=== PATIENT | female | born 1955 | race Caucasian/White ===

== ENCOUNTER 2017-12-17 23:46 | Emergency (ER) | payer OTHER ==
[2017-12-17 23:59] VITALS: BMI 31.6
--- NOTE | 2017-12-18 00:31 | ED PDOC ---
Arrival/HPI - General Chief Complaint: Chest Pain Time Seen by Provider: 12/18/17 00:14 Historian: Patient, Family (Son), Highway Construction Inspector (Son) - Critical Care Critical Care Minutes: 30 minutes - History of Present Illness Narrative History of Present Illness (Text): 12/18/17 00:27 A 62 year old male, whose past medical history include hypertension and hysterectomy, presents to the emergency department with son who translated, complaining of 2 day duration chest pain that has radiated to both upper extremities, cough, and subjective fever. The patient's son that the patient is here from [place]. She took an 11 hour flight 1 month ago, and has not had any complaints until 2 days ago. The son states that the patient developed a cough today. She describes the chest pain as a stabbing sensation. She notes that she took medication for her pain. The patient denies chills, headache, dizziness, shortness of breath, dyspnea on exertion, abdominal pain, nausea, vomiting, diarrhea, back pain, neck pain, urinary/bowel changes, or any other complaint. PMD: None Time/Duration: Other (2 Days) Symptom Onset: Sudden Symptom Course: Unchanged Activities at Onset: Rest, Light Context: Home Past Medical History - Provider Review Nursing Documentation Reviewed: Yes - Cardiac Hx Hypertension: Yes - Pulmonary Hx Respiratory Disorders: No - Neurological Hx Neurological Disorder: No - HEENT Hx HEENT Disorder: No - Renal Hx Renal Disorder: No - Endocrine/Metabolic Hx Diabetes Mellitus Type 1: Yes - Hematological/Oncological Hx Blood Disorders: No - Integumentary Hx Dermatological Disorder: No - Musculoskeletal/Rheumatological Hx Musculoskeletal Disorders: No - Gastrointestinal Hx Gastrointestinal Disorders: No - Genitourinary/Gynecological Hx Genitourinary Disorders: No - Psychiatric Hx Psychophysiologic Disorder: No Hx Substance Use: No - Surgical History Hx Hysterectomy: Yes - Anesthesia Hx Anesthesia: Yes Hx Anesthesia Reactions: No Hx Malignant Hyperthermia: No Family/Social History - Physician Review Nursing Documentation Reviewed: Yes Family/Social History: No Known Family HX Smoking Status: Never Smoked Hx Alcohol Use: No Hx Substance Use: No Allergies/Home Meds Allergies/Adverse Reactions: Allergies No Known Allergies Allergy (Verified 12/18/17 00:05) Home Medications: Home Meds Medication Instructions Recorded Confirmed Unobtainable 12/18/17 12/18/17 Review of Systems - Physician Review All systems were reviewed & negative as marked: Yes - Review of Systems Constitutional: Fevers Respiratory: Cough. absent: SOB Cardiovascular: Chest Pain. absent: EL Gastrointestinal: absent: Abdominal Pain, Stool Changes, Diarrhea, Nausea, Vomiting Genitourinary Female: absent: Urine Output Changes Musculoskeletal: absent: Back Pain, Neck Pain Neurological: absent: Headache, Dizziness Physical Exam Vital Signs Temp Pulse Resp BP Pulse Ox 12/18/17 03:54 16 12/18/17 03:10 98.5 F 80 18 122/47 L 97 12/18/17 02:34 68 18 131/68 100 12/18/17 01:54 85 18 156/85 H 100 12/18/17 01:53 87 156/85 H 12/17/17 23:46 99.5 F 79 18 152/86 H 100 - Systems Exam Head: Present: Atraumatic, Normocephalic Pupils: Present: PERRL Extroacular Muscles: Present: EOMI Conjunctiva: Present: Normal Mouth: Present: Moist Mucous Membranes Neck: Present: Normal Range of Motion Respiratory/Chest: Present: Clear to Auscultation, Good Air Exchange. No: Respiratory Distress, Accessory Muscle Use, Tender to Palpation Cardiovascular: Present: Regular Rate and Rhythm, Normal S1, S2. No: Murmurs Abdomen: Present: Normal Bowel Sounds. No: Tenderness, Distention, Peritoneal Signs Back: Present: Normal Inspection Upper Extremity: Present: Normal Inspection. No: Cyanosis, Edema Lower Extremity: Present: Normal Inspection. No: Edema Neurological: Present: GCS=15, CN II-XII Intact, Speech Normal Skin: Present: Warm, Dry, Normal Color. No: Rashes Psychiatric: Present: Alert, Oriented x 3, Normal Insight, Normal Concentration Medical Decision Making ED Course and Treatment: 12/18/17 00:32 Impression: A 62 year old female presents to the emergency department with her son for a complaint of 2 day duration chest pain radiating to both upper extremities. Plan: -- EKG -- Chest X-ray -- Labs -- Blood Culture -- Reassess and disposition Progress Notes: EKG: Ordered, reviewed, and independently interpreted the EKG. Rate : 78 BPM Rhythm : NSR Interpretation : Non-specific ST- T wave abnormality. 12/18/17 01:34: Positive Troponin (1.67) . 12/18/17 01:42: Discussed Troponin levels with patient and informed the patient that she is having an NV. The patient stated that she does not do well with bad news and requested something to clam her nerves. Patient's son noted that the patient had recently received bad news from [place] this week and was curious if that could have caused the NV. 12/18/17 01:57: Case discussed with medical assisting program director and Dr. Acevedo. Will admit patient. - Critical Care Critical Care Minutes: 30 minutes - Lab Interpretations Lab Results: 12/18/17 00:30 12/18/17 00:30 Lab Results 12/18/17 01:25: pO2 43, VBG pH 7.52 H, VBG pCO2 30.0 L, VBG HCO3 24.5, VBG Total CO2 25.4, VBG O2 Sat (Calc) 89.0 H, VBG Base Excess 2.4 H, VBG Potassium 3.9, Glucose 143 H, Lactate 1.7, FiO2 21.0, Sodium 136.0, Chloride 103.0, Venous Blood Potassium 3.9 12/18/17 01:25: Influenza Typ A,B (EIA) Negative for flu a/b 12/18/17 00:30: Thyroxine (T4) 12.2 H, TSH 3rd Generation 1.87 12/18/17 00:30: Triglycerides 113, Cholesterol 172, LDL Cholesterol Direct 97, HDL Cholesterol 42 12/18/17 00:30: APTT 35.7 12/18/17 00:30: Sodium 138, Potassium 3.9, Chloride 100, Carbon Dioxide 24, Anion Gap 18, BUN 11, Creatinine 0.7, Est GFR ( Amer) > 60, Est GFR (Non- Af Amer) > 60, Random Glucose 168 H, Calcium 10.2, Total Bilirubin 1.1, AST 45 H , ALT 30, Alkaline Phosphatase 63, Lactate Dehydrogenase 509, Total Creatine Kinase 214, Troponin I 1.67 H*, NT-Pro-B Natriuret Pep 1290 H, Total Protein 8.5 H, Albumin 4.5, Globulin 4.0, Albumin/Globulin Ratio 1.1 12/18/17 00:30: PT 12.4, INR 1.09 H 12/18/17 00:30: WBC 12.5 H, RBC 4.72, Hgb 13.1, Hct 38.7, MCV 82.0, MCH 27.8, MCHC 33.9, RDW 13.4, Plt Count 370, MPV 10.4, Gran % 70.6 H, Lymph % (Auto) 21.4 L, [place] % (Auto) 7.5 H, Eos % (Auto) 0.3 L, Baso % (Auto) 0.2, Gran # 8.86 H, Lymph # (Auto) 2.7, [place] # (Auto) 0.9 H, Eos # (Auto) 0.0, Baso # (Auto) 0.02 I have reviewed the lab results: Yes - RAD Interpretation Radiology Orders: 12/18/17 00:15 CXR (PA/LAT) [CHEST TWO VIEWS (PA/LAT)] [RAD] Stat - EKG Interpretation Interpreted by ED Physician: Yes Type: 12 lead EKG - Medication Orders Current Medication Orders: Aspirin (Aspirin Chewable) 81 mg PO DAILY BART Atorvastatin Calcium (Lipitor) 40 mg PO DAILY BART Clopidogrel Bisulfate (Plavix) 75 mg PO DAILY [facility] Dextrose/Sodium Chloride (Dextrose 5%/0.45% Ns 1000 Ml) 1,000 mls @ 75 mls/hr IV .[id number] [facility] Last Admin: 12/18/17 04:33 Dose: 75 mls/hr eMAR Start Stop Document 12/18/17 04:33 [email or web address] (Rec: 12/18/17 04:33 [email or web address] [email or web address] Intravenous Solution Start Date 12/18/17 Start Time 04:33 End Date 12/18/17 Insulin Human Lispro (Humalog Low) 0 units SC ACHS BART PRN Reason: Protocol Metoprolol Tartrate (Lopressor) 25 mg PO BID BART Morphine Sulfate (Morphine) 2 mg IVP Q4H PRN PRN Reason: Pain, severe (8-10) Nitroglycerin (Nitrostat Sl Tab) 0.4 mg SL Q5MIN PRN PRN Reason: Pain, severe (8-10) Pantoprazole Sodium (Protonix Ec Tab) 40 mg PO 0600 BART Discontinued Medications Aspirin (Aspirin Chewable) 324 mg PO STAT STA Stop: 12/18/17 01:37 Last Admin: 12/18/17 01:52 Dose: 324 mg Enoxaparin Sodium (Lovenox) 60 mg SC STAT STA PRN Reason: Protocol Stop: 12/18/17 02:21 Last Admin: 12/18/17 02:42 Dose: 60 mg Subcutaneous Administrations Document 12/18/17 02:42 AD (Rec: 12/18/17 02:42 AD [id number]) Injection Site MAR Injection Site Left Abdomen Charges for Administration # of Subcutaneous Administrations 1 Lorazepam (Ativan) 1 mg PO ONCE ONE PRN Reason: Protocol Stop: 12/18/17 01:42 Last Admin: 12/18/17 02:16 Dose: 1 mg Metoprolol Tartrate (Lopressor) 25 mg PO STAT STA Stop: 12/18/17 01:37 Last Admin: 12/18/17 01:53 Dose: 25 mg MAR Pulse and Blood Pressure Document 12/18/17 01:53 AD (Rec: 12/18/17 01:53 AD [id number]) Pulse Pulse Rate (60-90) 87 Blood Pressure Blood Pressure (100/60-150/90) 156/85 Nitroglycerin (Nitrostat Sl Tab) 0.4 mg SL STAT STA Stop: 12/18/17 01:37 Last Admin: 12/18/17 01:53 Dose: 0.4 mg Nitroglycerin (Nitro-Bid 2% Oint) 1 ea TOP STAT STA Stop: 12/18/17 01:37 Last Admin: 12/18/17 01:53 Dose: 1 ea Pneumococcal Polyvalent Vaccine (Pneumovax 23 Vaccine) 0.5 ml IM .ONCE ONE Stop: 12/18/17 05:01 - PA / PICKUP DRIVER / Resident Statement MD/DO has reviewed & agrees with the documentation as recorded. - Scribe Statement The provider has reviewed the documentation as recorded by the Nataliiaibraymond Irving Provider Scribe Attestation: All medical record entries made by the Scribe were at my direction and personally dictated by me. I have reviewed the chart and agree that the record accurately reflects my personal performance of the history, physical exam, medical decision making, and the department course for this patient. I have also personally directed, reviewed, and agree with the discharge instructions and disposition. Disposition/Present on Arrival - Present on Arrival Any Indicators Present on Arrival: No History of DVT/PE: No History of Uncontrolled Diabetes: No Urinary Catheter: No History of Decub. Ulcer: No History Surgical Site Infection Following: None - Disposition Have Diagnosis and Disposition been Completed?: Yes Diagnosis: NSTEMI, initial episode of care Disposition: HOSPITALIZED Disposition Time: 03:00 Patient Plan: Admission, Telemetry Condition: IMPROVED
[2017-12-18 00:52] LABS: BASO # 0.02 K/mm3 (0.0-2.0); BASO % 0.2 % (0.0-3.0); EOS % 0.3 % (1.5-5.0); GRAN # 8.86 (1.4-6.5); GRAN % 70.6 % (50.0-68.0); HEMOGLOBIN 13.1 g/dL (12.0-16.0); LYMPH # 2.7 (1.2-3.4); LYMPH % 21.4 % (22.0-35.0); MEAN CORPUSCULAR HEMOGLOBIN 27.8 pg (25.0-35.0); MEAN CORPUSCULAR HGB CONC 33.9 g/dl (31.0-37.0); MEAN PLATELET VOLUME 10.4 fl (7.0-11.0); MONO # 0.9 (0.1-0.6); MONO % 7.5 % (1.0-6.0); RBC 4.72 10^6/uL (3.5-6.1); RED CELL DISTRIBUTION WIDTH 13.4 % (11.5-14.5); WHITE BLOOD COUNT 12.5 10^3/ul (4.5-11.0)
[2017-12-18 00:57] LABS: INR 1.09 (0.93-1.08); PROTHROMBIN TIME 12.4 SECONDS (9.4-12.5)
[2017-12-18 01:00] LABS: ALB/GLOB RATIO 1.1 (1.1-1.8); ALBUMIN 4.5 g/dL (3.0-4.8); ALT/SGPT 30 U/L (7-56); AST/SGOT 45 U/L (14-36); BLOOD UREA NITROGEN 11 mg/dL (7-21); CALCIUM 10.2 mg/dL (8.4-10.5); GFR AFRICAN-AMERICAN > 60; GFR NON-AFRICAN AMERICAN > 60
[2017-12-18 01:35] LABS: TROPONIN I 1.67 ng/mL
[2017-12-18 01:36] LABS: B-TYPE NATRIURETIC PEPTIDE 1290 pg/mL (0-450)
[2017-12-18] MEDS ORDERED: Nitroglycerin 2% Ointment Foilpak UD TOP STA (01:36)
[2017-12-18] MEDS ORDERED: Enoxaparin 60 mg Syringe SC STA (02:20)
[2017-12-18 02:23] LABS: VENOUS BLOOD GAS BASE EXCESS 2.4 mmol/L (0.0-2.0); VENOUS BLOOD GAS PO2 43 mm/Hg (30-55); VENOUS BLOOD PH 7.52 (7.32-7.43)
[2017-12-18] MEDS ORDERED: Morphine 2 mg/ml ISec IVP PRN (02:57)
--- NOTE | 2017-12-18 03:14 | CP.PCM.HP ---
<Tom Cox - Last Filed: 12/18/17 03:24> History of Present Illness - History of Present Illness History of Present Illness: Patient is a 62 year old Telugu speaking female with past medical history of DM and HTN who presents with mid sternal chest pain for 2 days. Patient states the pain began 2 days ago after receiving some "bad news" from back home in [place]. She described the pain as stabbing in quality, 10/10 intensity, with radiation to her left arm and hand. Patient did not take any medication for the pain, but it was so severe patient could not sleep. Today the pain became unbearable so she decided to come to the hospital. In addition, patient stated she had 2 episodes of non bloody non bilious vomiting yesterday. Patient denies shortness of breath, nausea, fever, chills, sore throat, sic contacts, abdominal pain or any other complaints at this time. PMH:DM, HTN PSH: hysterectomy Allergies: NKDA Medications: medications from [place], will confirm Family Hx: none significant Social: denies tobacco, alcohol, or illicit drug use Present on Admission - Present on Admission Any Indicators Present on Admission: No Review of Systems - Constitutional Constitutional: absent: Chills, Fever - EENT Eyes: absent: Blurred Vision, Change in Vision Nose/Mouth/Throat: absent: Nasal Congestion, Nasal Discharge - Cardiovascular Cardiovascular: Chest Pain, Chest Pain at Rest, Pain Radiating to Arm/Neck/Jaw. absent: Dyspnea, Irregular Heart Rhythm, Lightheadedness, Palpitations - Respiratory Respiratory: absent: Cough, Dyspnea, Chest Congestion - Gastrointestinal Gastrointestinal: Vomiting. absent: Abdominal Pain, Diarrhea, Nausea - Neurological Neurological: absent: Disequilibrium, Numbness, Tingling Past Patient History - Past Social History Smoking Status: Never Smoked - CARDIAC Hx Hypertension: Yes - PULMONARY Hx Respiratory Disorders: No - NEUROLOGICAL Hx Neurological Disorder: No - HEENT Hx HEENT Problems: No - RENAL Hx Chronic Kidney Disease: No - ENDOCRINE/METABOLIC Hx Diabetes Mellitus Type 1: Yes - HEMATOLOGICAL/ONCOLOGICAL Hx Blood Disorders: No - INTEGUMENTARY Hx Dermatological Problems: No - MUSCULOSKELETAL/RHEUMATOLOGICAL Hx Musculoskeletal Disorders: No - GASTROINTESTINAL Hx Gastrointestinal Disorders: No - GENITOURINARY/GYNECOLOGICAL Hx Genitourinary Disorders: No - PSYCHIATRIC Hx Psychophysiologic Disorder: No Hx Substance Use: No - SURGICAL HISTORY Hx Hysterectomy: Yes - ANESTHESIA Hx Anesthesia: Yes Hx Anesthesia Reactions: No Hx Malignant Hyperthermia: No Meds Allergies/Adverse Reactions: Allergies Allergy/AdvReac Type Severity Reaction Status Date / Time No Known Allergies Allergy Verified 12/18/17 00:05 Physical Exam - Constitutional Appears: Non-toxic, No Acute Distress - Head Exam Head Exam: ATRAUMATIC, NORMAL INSPECTION, NORMOCEPHALIC - Eye Exam Eye Exam: EOMI, Normal appearance, PERRL - ENT Exam ENT Exam: Mucous Membranes Moist - Neck Exam Neck exam: Negative for: Lymphadenopathy, Tenderness - Respiratory Exam Respiratory Exam: Clear to Auscultation Bilateral, NORMAL BREATHING PATTERN - Cardiovascular Exam Cardiovascular Exam: REGULAR RHYTHM, +S1, +S2. absent: Systolic Murmur - GI/Abdominal Exam GI & Abdominal Exam: Normal Bowel Sounds, Soft. absent: Distended, Tenderness - Neurological Exam Neurological exam: Alert, Oriented x3 Results - Vital Signs Recent Vital Signs: Last Vital Signs Temp 99.5 F 12/17/17 23:46 Pulse 68 12/18/17 02:34 Resp 18 12/18/17 02:34 BP 131/68 12/18/17 02:34 Pulse Ox 100 12/18/17 02:34 - Labs Result Diagrams: 12/18/17 00:30 12/18/17 00:30 Labs: Laboratory Results - last 24 hr 12/18/17 12/18/17 12/18/17 00:30 00:30 00:30 WBC 12.5 H RBC 4.72 Hgb 13.1 Hct 38.7 MCV 82.0 MCH 27.8 MCHC 33.9 RDW 13.4 Plt Count 370 MPV 10.4 Gran % 70.6 H Lymph % (Auto) 21.4 L [place] % (Auto) 7.5 H Eos % (Auto) 0.3 L Baso % (Auto) 0.2 Gran # 8.86 H Lymph # (Auto) 2.7 [place] # (Auto) 0.9 H Eos # (Auto) 0.0 Baso # (Auto) 0.02 PT 12.4 INR 1.09 H pO2 VBG pH VBG pCO2 VBG HCO3 VBG Total CO2 VBG O2 Sat (Calc) VBG Base Excess VBG Potassium Glucose Lactate FiO2 Sodium 138 Potassium 3.9 Chloride 100 Carbon Dioxide 24 Anion Gap 18 BUN 11 Creatinine 0.7 Est GFR ( Amer) > 60 Est GFR (Non-Af Amer) > 60 Random Glucose 168 H Calcium 10.2 Total Bilirubin 1.1 AST 45 H ALT 30 Alkaline Phosphatase 63 Lactate Dehydrogenase 509 Total Creatine Kinase 214 Troponin I 1.67 H* NT-Pro-B Natriuret Pep 1290 H Total Protein 8.5 H Albumin 4.5 Globulin 4.0 Albumin/Globulin Ratio 1.1 Venous Blood Potassium Influenza Typ A,B (EIA) 12/18/17 12/18/17 01:25 01:25 WBC RBC Hgb Hct MCV MCH MCHC RDW Plt Count MPV Gran % Lymph % (Auto) [place] % (Auto) Eos % (Auto) Baso % (Auto) Gran # Lymph # (Auto) [place] # (Auto) Eos # (Auto) Baso # (Auto) PT INR pO2 43 VBG pH 7.52 H VBG pCO2 30.0 L VBG HCO3 24.5 VBG Total CO2 25.4 VBG O2 Sat (Calc) 89.0 H VBG Base Excess 2.4 H VBG Potassium 3.9 Glucose 143 H Lactate 1.7 FiO2 21.0 Sodium 136.0 Potassium Chloride 103.0 Carbon Dioxide Anion Gap BUN Creatinine Est GFR ( Amer) Est GFR (Non-Af Amer) Random Glucose Calcium Total Bilirubin AST ALT Alkaline Phosphatase Lactate Dehydrogenase Total Creatine Kinase Troponin I NT-Pro-B Natriuret Pep Total Protein Albumin Globulin Albumin/Globulin Ratio Venous Blood Potassium 3.9 Influenza Typ A,B (EIA) Negative for flu a/b Assessment & Plan - Assessment and Plan (Free Text) Assessment: Patient is a 62 year old Telugu speaking female with past medical history of DM and HTN who presents with mid sternal chest pain for 2 days. Patient states the pain began 2 days ago after receiving some "bad news" from back home in [place]. Plan: 1. NSTEMI -EKG pending official read, non specific ST changes -Initial trop 1.67, continue to monitor serially 3x -EKG in AM -echo pending -aspirin, metoprolol, and nitroglycerin given in ED -Lovenox 60 SC, will defer to cardiology for further anticoagulation going forward -cardiology consulted, Jenny, follow recs -continue Metoprolol 25 BID -Aspirin 81mg -Lipitor 40mg -Plavix 75mg -Morphine for pain control -Nitroglycerin SL PRN -TSH/T4 pending -lipid panel pending -hemoglobin A1C pending -D5 1/2NS @75 -insulin sliding scale low -NPO except meds 2. DM -ISS Lispro Low 3. HTN -131/62 -continue to monitor -Metoprolol 25 BID 4. Leukocytosis -WBC 12.5 -likely reactive -continue to monitor DI/DVT -SCD -protonix <Ameya Acevedo MD - Last Filed: 12/18/17 09:29> Results - Vital Signs Recent Vital Signs: Last Vital Signs Temp 99.5 F 12/18/17 08:50 Pulse 83 12/18/17 08:50 Resp 17 12/18/17 08:50 BP 135/64 12/18/17 08:50 Pulse Ox 98 12/18/17 08:50 - Labs Result Diagrams: 12/18/17 05:30 12/18/17 05:30 Labs: Laboratory Results - last 24 hr 12/18/17 12/18/17 05:30 05:30 WBC 10.7 RBC 4.34 Hgb 11.8 L Hct 35.6 L MCV 82.0 MCH 27.2 MCHC 33.1 RDW 13.4 Plt Count 336 MPV 10.2 Gran % 66.3 Lymph % (Auto) 23.7 [place] % (Auto) 9.6 H Eos % (Auto) 0.2 L Baso % (Auto) 0.2 Gran # 7.08 H Lymph # (Auto) 2.5 [place] # (Auto) 1.0 H Eos # (Auto) 0.0 Baso # (Auto) 0.02 Sodium 138 Potassium 3.7 Chloride 100 Carbon Dioxide 24 Anion Gap 18 BUN 11 Creatinine 0.7 Est GFR ( Amer) > 60 Est GFR (Non-Af Amer) > 60 Random Glucose 215 H Calcium 9.5 Total Bilirubin 1.2 AST 53 H ALT 33 Alkaline Phosphatase 56 Troponin I 3.61 H* D Total Protein 7.8 Albumin 4.1 Globulin 3.7 Albumin/Globulin Ratio 1.1 Attending/Attestation - Attestation I have personally seen and examined this patient.: Yes I have fully participated in the care of the patient.: Yes I have reviewed all pertinent clinical information: Yes Notes (Text): -I agree with the above H&P completed by the resident physician with the following additions and/or changes: -The patient is a 62 year old [place] women with a history of NIDDM and HTN who is being admitted for NSTEM. She will be kept NPO and serial EKGs and trop s have been ordered. Cardiology is already on-board and will evaluate the patient later this morning. A one-time therapeutic dose of SC Lovenox was given overnight per cardiology consult orders. We will defer to both cards and the primary team to continue with the anticoagulation of their choice. The patient will also receive daily Plavix, ASA, Lipitor, Metoprolol and PRN sublingual NTG. A 2D-echo as well as HgA1c, Lipid panel and TSH have all been ordered.
[2017-12-18] MEDS ORDERED: Dextrose 5%/0.45% NS 1,000 ML IV SCH (03:15)
[2017-12-18 03:26] LABS: HDL CHOLESTEROL 42 mg/dL (29-60)
[2017-12-18 03:37] LABS: LDL CHOLESTEROL 97 mg/dL (0-129)
[2017-12-18 03:43] LABS: T4 12.2 ug/dL (5.5-11.0)
[2017-12-18] MEDS ORDERED: Influenza Vaccine 60 mcg/0.5 mL SYR (4YR UP) IM ONE (05:00)
[2017-12-18] MEDS ORDERED: Pneumococcal 23-Valent Vaccine IM ONE (05:00)
[2017-12-18] MEDS ORDERED: Pantoprazole 40 mg EC Tab PO SCH (06:00)
[2017-12-18 06:18] LABS: BASO # 0.02 K/mm3 (0.0-2.0); BASO % 0.2 % (0.0-3.0); EOS % 0.2 % (1.5-5.0); GRAN # 7.08 (1.4-6.5); GRAN % 66.3 % (50.0-68.0); HEMOGLOBIN 11.8 g/dL (12.0-16.0); LYMPH # 2.5 (1.2-3.4); LYMPH % 23.7 % (22.0-35.0); MEAN CORPUSCULAR HEMOGLOBIN 27.2 pg (25.0-35.0); MEAN CORPUSCULAR HGB CONC 33.1 g/dl (31.0-37.0); MEAN PLATELET VOLUME 10.2 fl (7.0-11.0); MONO % 9.6 % (1.0-6.0); RBC 4.34 10^6/uL (3.5-6.1); RED CELL DISTRIBUTION WIDTH 13.4 % (11.5-14.5); WHITE BLOOD COUNT 10.7 10^3/ul (4.5-11.0)
[2017-12-18 06:45] LABS: ALB/GLOB RATIO 1.1 (1.1-1.8); ALBUMIN 4.1 g/dL (3.0-4.8); ALT/SGPT 33 U/L (7-56); AST/SGOT 53 U/L (14-36); BLOOD UREA NITROGEN 11 mg/dL (7-21); CALCIUM 9.5 mg/dL (8.4-10.5); GFR AFRICAN-AMERICAN > 60; GFR NON-AFRICAN AMERICAN > 60
[2017-12-18 07:22] LABS: TROPONIN I 3.61 ng/mL
[2017-12-18] MEDS ORDERED: Insulin Lispro (humaLOG) LOW Coverage SC SCH (07:30)
[2017-12-18 08:51] VITALS: RESP 17; TEMP 99.5; O2SAT 98
--- NOTE | 2017-12-18 09:33 | RAD ---
HISTORY: chest pain COMPARISON: No prior. TECHNIQUE: Chest PA and lateral FINDINGS: LUNGS: No evidence of focal infiltrate or consolidation in the lungs. PLEURA: No significant pleural effusion identified. No pneumothorax apparent. CARDIOVASCULAR: Normal. OSSEOUS STRUCTURES: No significant abnormalities. VISUALIZED UPPER ABDOMEN: Normal. OTHER FINDINGS: None. IMPRESSION: No active disease.
[2017-12-18] MEDS ORDERED: Enoxaparin 60 mg Syringe SC SCH (10:00)
[2017-12-18 10:02] VITALS: BP 134/64; PULSE 87
--- NOTE | 2017-12-18 16:11 | CP.PCM.DIS ---
<Deepti Lopez - Last Filed: 12/18/17 16:04> Provider - Provider Consults: Dr. Alvarado Time Spent in preparation of Discharge (in minutes): 35 Diagnosis - Discharge Diagnosis (1) NSTEMI, initial episode of care Status: Acute Hospital Course - Lab Results Lab Results: Most Recent Lab Values WBC 10.7 10^3/ul (4.5-11.0) 12/18/17 05:30 RBC 4.34 10^6/uL (3.5-6.1) 12/18/17 05:30 Hgb 11.8 g/dL (12.0-16.0) L 12/18/17 05:30 Hct 35.6 % (36.0-48.0) L 12/18/17 05:30 MCV 82.0 fl (80.0-105.0) 12/18/17 05:30 MCH 27.2 pg (25.0-35.0) 12/18/17 05:30 MCHC 33.1 g/dl (31.0-37.0) 12/18/17 05:30 RDW 13.4 % (11.5-14.5) 12/18/17 05:30 Plt Count 336 10^3/uL (120.0-450.0) 12/18/17 05:30 MPV 10.2 fl (7.0-11.0) 12/18/17 05:30 Gran % 66.3 % (50.0-68.0) 12/18/17 05:30 Lymph % (Auto) 23.7 % (22.0-35.0) 12/18/17 05:30 Chester % (Auto) 9.6 % (1.0-6.0) H 12/18/17 05:30 Eos % (Auto) 0.2 % (1.5-5.0) L 12/18/17 05:30 Baso % (Auto) 0.2 % (0.0-3.0) 12/18/17 05:30 Gran # 7.08 (1.4-6.5) H 12/18/17 05:30 Lymph # (Auto) 2.5 (1.2-3.4) 12/18/17 05:30 Chester # (Auto) 1.0 (0.1-0.6) H 12/18/17 05:30 Eos # (Auto) 0.0 (0.0-0.7) 12/18/17 05:30 Baso # (Auto) 0.02 K/mm3 (0.0-2.0) 12/18/17 05:30 PT 12.4 SECONDS (9.4-12.5) 12/18/17 00:30 INR 1.09 (0.93-1.08) H 12/18/17 00:30 APTT 35.7 Seconds (25.1-36.5) 12/18/17 00:30 pO2 43 mm/Hg (30-55) 12/18/17 01:25 VBG pH 7.52 (7.32-7.43) H 12/18/17 01:25 VBG pCO2 30.0 (40-60) L 12/18/17 01:25 VBG HCO3 24.5 mmol/l (21-28) 12/18/17 01:25 VBG Total CO2 25.4 mmol.L (22-28) 12/18/17 01:25 VBG O2 Sat (Calc) 89.0 % (40-65) H 12/18/17 01:25 VBG Base Excess 2.4 mmol/L (0.0-2.0) H 12/18/17 01:25 VBG Potassium 3.9 mmol/L (3.6-5.2) 12/18/17 01:25 Sodium 136.0 mmol/L (132-148) 12/18/17 01:25 Chloride 103.0 mmol/L (98-107) 12/18/17 01:25 Glucose 143 mg/dl (65-105) H 12/18/17 01:25 Lactate 1.7 mmol/L (0.7-2.1) 12/18/17 01:25 FiO2 21.0 % 12/18/17 01:25 Sodium 138 mmol/L (132-148) 12/18/17 05:30 Potassium 3.7 mmol/L (3.6-5.0) 12/18/17 05:30 Chloride 100 mmol/L (98-107) 12/18/17 05:30 Carbon Dioxide 24 mmol/L (21-33) 12/18/17 05:30 Anion Gap 18 (10-20) 12/18/17 05:30 BUN 11 mg/dL (7-21) 12/18/17 05:30 Creatinine 0.7 mg/dl (0.7-1.2) 12/18/17 05:30 Est GFR ( Amer) > 60 12/18/17 05:30 Est GFR (Non-Af Amer) > 60 12/18/17 05:30 Random Glucose 215 mg/dL (70-110) H 12/18/17 05:30 Hemoglobin A1c 8.3 % (4.2-6.5) H 12/18/17 00:30 Calcium 9.5 mg/dL (8.4-10.5) 12/18/17 05:30 Total Bilirubin 1.2 mg/dL (0.2-1.3) 12/18/17 05:30 AST 53 U/L (14-36) H 12/18/17 05:30 ALT 33 U/L (7-56) 12/18/17 05:30 Alkaline Phosphatase 56 U/L (38-126) 12/18/17 05:30 Lactate Dehydrogenase 509 U/L (333-699) 12/18/17 00:30 Total Creatine Kinase 214 U/L (35-230) 12/18/17 00:30 Troponin I 3.61 ng/mL H* D 12/18/17 05:30 NT-Pro-B Natriuret Pep 1290 pg/mL (0-450) H 12/18/17 00:30 Total Protein 7.8 g/dL (5.8-8.3) 12/18/17 05:30 Albumin 4.1 g/dL (3.0-4.8) 12/18/17 05:30 Globulin 3.7 gm/dL 12/18/17 05:30 Albumin/Globulin Ratio 1.1 (1.1-1.8) 12/18/17 05:30 Triglycerides 113 mg/dL (35-160) 12/18/17 00:30 Cholesterol 172 mg/dL (130-200) 12/18/17 00:30 LDL Cholesterol Direct 97 mg/dL (0-129) 12/18/17 00:30 HDL Cholesterol 42 mg/dL (29-60) 12/18/17 00:30 Thyroxine (T4) 12.2 ug/dL (5.5-11.0) H 12/18/17 00:30 TSH 3rd Generation 1.87 mIU/mL (0.46-4.68) 12/18/17 00:30 Venous Blood Potassium 3.9 mmol/L (3.6-5.2) 12/18/17 01:25 Influenza Typ A,B (EIA) Negative for flu a/b (NEGATIVE) 12/18/17 01:25 - Hospital Course Hospital Course: Upon admission: Patient is a 62 year old Upper Sor[place] speaking female with past medical history of DM and HTN who presents with mid sternal chest pain for 2 days. Patient states the pain began 2 days ago after receiving some "bad news" from back home in [place]. She described the pain as stabbing in quality, 10/10 intensity, with radiation to her left arm and hand. Patient did not take any medication for the pain, but it was so severe patient could not sleep. Today the pain became unbearable so she decided to come to the hospital. In addition, patient stated she had 2 episodes of non bloody non bilious vomiting yesterday. Patient denies shortness of breath, nausea, fever, chills, sore throat, sic contacts, abdominal pain or any other complaints at this time. Hospital Course: Patient was admitted for NSTEMI. Troponins were found to be elevated and trending upwards (1.67, 3.61) and EKG showed nonspecific ST segment changes. Patient was started on ASA, metoprolol, nitroglycerin, lipitor, lovenox, plavix , and morphine. Dr. Alvarado was consulted for plans for echo and cardiac catheterization. Patient said she was felling better and wanted to go home. I explained to her with the contract negotiation manager that she was given medications that might make her feel better although she still requires medical attention since there has been damage to her heart muscle from an NSTEMI. I informed the patient that it was dangerous for her to leave and there is potential for her condition to worsen, even to the point of . The patient still wished to sign out AMA. Discharge Exam - Head Exam Head Exam: ATRAUMATIC, NORMAL INSPECTION, NORMOCEPHALIC - Eye Exam Eye Exam: EOMI, Normal appearance, PERRL - ENT Exam ENT Exam: Mucous Membranes Moist - Respiratory Exam Respiratory Exam: Clear to PA & Lateral, NORMAL BREATHING PATTERN, UNREMARKABLE - Cardiovascular Exam Cardiovascular Exam: RRR, +S1, +S2. absent: JVD - GI/Abdominal Exam GI & Abdominal Exam: Normal Bowel Sounds, Soft, Unremarkable. absent: Distended , Tenderness - Extremities Exam Extremities exam: normal inspection - Neurological Exam Neurological exam: Alert, Oriented x3 - Psychiatric Exam Psychiatric exam: Normal Affect, Normal Mood - Skin Skin Exam: Dry, Intact, Normal Color, Warm Discharge Plan - Discharge Medications Prescriptions: Aspirin [Aspirin Chewable] 81 mg PO DAILY #30 chew Atorvastatin [Lipitor] 40 mg PO DAILY #30 tab Metoprolol Tartrate [Lopressor] 25 mg PO BID #60 tab - Follow Up Plan Condition: SERIOUS Disposition: AGAINST MEDICAL ADVICE Additional Instructions: Please follow up with your primary care provider as soon as possible, preferably within the next couple of days. Plesae fill and take the prescriptions provided for you. Please return to the ED if you have worsening of chest pain, shortness of breath , dizziness, weakness, arm/neck/jaw pain. <Selena Burt - Last Filed: 12/18/17 18:22> Hospital Course - Lab Results Lab Results: Most Recent Lab Values WBC 10.7 10^3/ul (4.5-11.0) 12/18/17 05:30 RBC 4.34 10^6/uL (3.5-6.1) 12/18/17 05:30 Hgb 11.8 g/dL (12.0-16.0) L 12/18/17 05:30 Hct 35.6 % (36.0-48.0) L 12/18/17 05:30 MCV 82.0 fl (80.0-105.0) 12/18/17 05:30 MCH 27.2 pg (25.0-35.0) 12/18/17 05:30 MCHC 33.1 g/dl (31.0-37.0) 12/18/17 05:30 RDW 13.4 % (11.5-14.5) 12/18/17 05:30 Plt Count 336 10^3/uL (120.0-450.0) 12/18/17 05:30 MPV 10.2 fl (7.0-11.0) 12/18/17 05:30 Gran % 66.3 % (50.0-68.0) 12/18/17 05:30 Lymph % (Auto) 23.7 % (22.0-35.0) 12/18/17 05:30 Chester % (Auto) 9.6 % (1.0-6.0) H 12/18/17 05:30 Eos % (Auto) 0.2 % (1.5-5.0) L 12/18/17 05:30 Baso % (Auto) 0.2 % (0.0-3.0) 12/18/17 05:30 Gran # 7.08 (1.4-6.5) H 12/18/17 05:30 Lymph # (Auto) 2.5 (1.2-3.4) 12/18/17 05:30 Chester # (Auto) 1.0 (0.1-0.6) H 12/18/17 05:30 Eos # (Auto) 0.0 (0.0-0.7) 12/18/17 05:30 Baso # (Auto) 0.02 K/mm3 (0.0-2.0) 12/18/17 05:30 PT 12.4 SECONDS (9.4-12.5) 12/18/17 00:30 INR 1.09 (0.93-1.08) H 12/18/17 00:30 APTT 35.7 Seconds (25.1-36.5) 12/18/17 00:30 pO2 43 mm/Hg (30-55) 12/18/17 01:25 VBG pH 7.52 (7.32-7.43) H 12/18/17 01:25 VBG pCO2 30.0 (40-60) L 12/18/17 01:25 VBG HCO3 24.5 mmol/l (21-28) 12/18/17 01:25 VBG Total CO2 25.4 mmol.L (22-28) 12/18/17 01:25 VBG O2 Sat (Calc) 89.0 % (40-65) H 12/18/17 01:25 VBG Base Excess 2.4 mmol/L (0.0-2.0) H 12/18/17 01:25 VBG Potassium 3.9 mmol/L (3.6-5.2) 12/18/17 01:25 Sodium 136.0 mmol/L (132-148) 12/18/17 01:25 Chloride 103.0 mmol/L (98-107) 12/18/17 01:25 Glucose 143 mg/dl (65-105) H 12/18/17 01:25 Lactate 1.7 mmol/L (0.7-2.1) 12/18/17 01:25 FiO2 21.0 % 12/18/17 01:25 Sodium 138 mmol/L (132-148) 12/18/17 05:30 Potassium 3.7 mmol/L (3.6-5.0) 12/18/17 05:30 Chloride 100 mmol/L (98-107) 12/18/17 05:30 Carbon Dioxide 24 mmol/L (21-33) 12/18/17 05:30 Anion Gap 18 (10-20) 12/18/17 05:30 BUN 11 mg/dL (7-21) 12/18/17 05:30 Creatinine 0.7 mg/dl (0.7-1.2) 12/18/17 05:30 Est GFR ( Amer) > 60 12/18/17 05:30 Est GFR (Non-Af Amer) > 60 12/18/17 05:30 Random Glucose 215 mg/dL (70-110) H 12/18/17 05:30 Hemoglobin A1c 8.3 % (4.2-6.5) H 12/18/17 00:30 Calcium 9.5 mg/dL (8.4-10.5) 12/18/17 05:30 Total Bilirubin 1.2 mg/dL (0.2-1.3) 12/18/17 05:30 AST 53 U/L (14-36) H 12/18/17 05:30 ALT 33 U/L (7-56) 12/18/17 05:30 Alkaline Phosphatase 56 U/L (38-126) 12/18/17 05:30 Lactate Dehydrogenase 509 U/L (333-699) 12/18/17 00:30 Total Creatine Kinase 214 U/L (35-230) 12/18/17 00:30 Troponin I 3.61 ng/mL H* D 12/18/17 05:30 NT-Pro-B Natriuret Pep 1290 pg/mL (0-450) H 12/18/17 00:30 Total Protein 7.8 g/dL (5.8-8.3) 12/18/17 05:30 Albumin 4.1 g/dL (3.0-4.8) 12/18/17 05:30 Globulin 3.7 gm/dL 12/18/17 05:30 Albumin/Globulin Ratio 1.1 (1.1-1.8) 12/18/17 05:30 Triglycerides 113 mg/dL (35-160) 12/18/17 00:30 Cholesterol 172 mg/dL (130-200) 12/18/17 00:30 LDL Cholesterol Direct 97 mg/dL (0-129) 12/18/17 00:30 HDL Cholesterol 42 mg/dL (29-60) 12/18/17 00:30 Thyroxine (T4) 12.2 ug/dL (5.5-11.0) H 12/18/17 00:30 TSH 3rd Generation 1.87 mIU/mL (0.46-4.68) 12/18/17 00:30 Venous Blood Potassium 3.9 mmol/L (3.6-5.2) 12/18/17 01:25 Influenza Typ A,B (EIA) Negative for flu a/b (NEGATIVE) 12/18/17 01:25 Attending/Attestation - Attestation I have personally seen and examined this patient.: Yes I have fully participated in the care of the patient.: Yes I have reviewed all pertinent clinical information, including history, physical exam and plan: Yes Notes (Text): 12/18/17 18:19 Patient was seen and examined with medical coding auditor.Family is at bed side. 62 yrs old female with PMH of HTN/DM with NSEMI, Patient refused to stay in the hospital.The issue was discussed in detail with her.She was alert, awake and oriented and understood the risk of leaving the hospital, that includes .Patient has signed AMA. Prognosis is guarded.
--- NOTE | 2017-12-21 13:39 | CARD ---
APPROVED REPORT EKG Measurement Heart [id number] CA [id number] [id number] <Conclusion> Normal sinus rhythm Nonspecific ST and T wave abnormality Abnormal ECG
== END 2017-12-18 16:26 | disposition left against medical advice (07) ==
LOC: ED 23:46 → ERH 12-18 02:24 → UNDOADMIN 12-18 02:24 → ED 12-18 16:26
DX: I21.4 Non-ST elevation (NSTEMI) myocardial infarction (principal); I10 Essential (primary) hypertension; E11.9 Type 2 diabetes mellitus without complications; D72.829 Elevated white blood cell count, unspecified
CPT/HCPCS: 71046; 80053; 80061; 82550; 82803; 83036; 83615; 83880; 84436; 84443; 84484; 85025; 85610; 85730; 87040; 87804; 93005; 96372; 99285; J1650; J7042